=== PATIENT | female | born 1985 | race Caucasian/White ===

== ENCOUNTER 2017-03-29 13:16 | Emergency (ER) | payer BC ==
[~2017-03-29] VITALS: Ht 177.8 cm; Wt 123.2 kg
[2017-03-29 14:08] LABS: HEMATOCRIT 45.1 % (36.0-46.0); MCH 29.3 PG (29.0-34.0); MCHC 35.5 G/DL (30.0-36.0); MCV 82.6 FL (83-99); MEAN PLAT.VOLUME 10.6 uM^3 (9.5-12.4); PLATELET COUNT 357 K/uL (156-360); RBC DIS.WIDTH-CV 12.2 % (11.8-14.6); RBC DIS.WIDTH-SD 36.5 % (39-53); RED BLOOD COUNT 5.46 M/uL (3.80-5.20); WHITE BLOOD COUNT 7.6 K/uL (4.1-10.2)
[2017-03-29 14:18] LABS: CHLORIDE 100 mEq/L (99-109); POTASSIUM 3.4 mEq/L (3.7-5.4); SODIUM 138 mEq/L (136-147)
[2017-03-29 14:20] LABS: GLUCOSE 107 mg/dL (70-99)
[2017-03-29 14:21] LABS: ANION GAP 10 MEQ/L (2-14)
[2017-03-29 14:24] LABS: GFR ESTIMATE (CALCULATED) > 59 mL/min/; UREA NITROGEN (BUN) 7 mg/dL (9-23)
[2017-03-29 15:45] LABS: TOTAL BILIRUBIN 0.7 mg/dL (0.0-1.0)
[2017-03-29 15:46] LABS: ALKALINE PHOSPHATASE 103 IU/L (3-129)
[2017-03-29 15:48] LABS: DIRECT BILIRUBIN 0.3 mg/dL (0.0-0.3)
[2017-03-29 16:28] LABS: ADD MIUA? YES; BILIRUBIN NEGATIVE; BLOOD SMALL; COLOR AMBER ((YELLOW)); GLUCOSE (STRIP) NEGATIVE; KETONES NEGATIVE; LEUKOCYTES LARGE; NITRITE NEGATIVE; PROTEIN (STRIP) 30; SPECIFIC GRAVITY 1.021 (1.000-1.030)
[2017-03-29 16:45] LABS: BACTERIA 2+ /HPF; EPITHELIAL CELLS 1+ /HPF; MUCUS TRACE /LPF; UCUL ADDED? YES; WHITE BLOOD CELLS 20-30 /HPF (0-5)
[2017-03-29] MEDS ORDERED: ZOFRAN4 MG PO (17:09)
[2017-03-29] MEDS ORDERED: CIPRO500 MG PO (17:09)
[2017-03-29 17:20] VITALS: BP 132/91
== END 2017-03-29 17:36 | disposition home or self-care (01) ==
LOC: EME 13:16
DX: N39.0 Urinary tract infection, site not specified (principal); R11.2 Nausea with vomiting, unspecified; K21.9 Gastro-esophageal reflux disease without esophagitis; Z85.828 Personal history of other malignant neoplasm of skin
CPT/HCPCS: 74022; 80048; 80076; 81003; 85027; 87086; 99281; 99285; J7030; Q0169

== ENCOUNTER 2018-02-05 11:01 | Emergency (ER) | payer BC ==
[~2018-02-05] VITALS: Ht 177.8 cm; Wt 128.8 kg
[~2018-02-05 11:01] MED LIST: CIPRO500 MG PO; ZOFRAN4 MG PO
[2018-02-05 11:51] LABS: HEMATOCRIT 46.1 % (36.0-46.0); HEMOGLOBIN 16.5 G/DL (11.9-15.5); MCH 29.9 PG (29.0-34.0); MCHC 35.8 G/DL (30.0-36.0); MCV 83.7 FL (83-99); PLATELET COUNT 341 K/uL (156-360); RBC DIS.WIDTH-CV 12.1 % (11.8-14.6); RBC DIS.WIDTH-SD 36.6 % (39-53); RED BLOOD COUNT 5.51 M/uL (3.80-5.20); WHITE BLOOD COUNT 10.1 K/uL (4.1-10.2)
[2018-02-05 11:52] LABS: APPEARANCE CLEAR ((CLEAR)); BILIRUBIN NEGATIVE; BLOOD SMALL; COLOR AMBER ((YELLOW)); GLUCOSE (STRIP) NEGATIVE; KETONES 20; LEUKOCYTES SMALL; NITRITE NEGATIVE; PROTEIN (STRIP) 30
[2018-02-05 12:05] LABS: BACTERIA RARE /HPF; CALCIUM OXALATE CRYSTALS 1+ /HPF; EPITHELIAL CELLS 1+ /HPF; MUCUS 1+ /LPF; UCUL ADDED? NO; WHITE BLOOD CELLS 0-5 /HPF (0-5)
[2018-02-05 12:32] LABS: ALBUMIN 4.9 G/DL (3.2-4.8); CHLORIDE 98 MEQ/L (99-109); DIRECT BILIRUBIN 0.1 mg/dL (0.0-0.3); POTASSIUM 3.9 MEQ/L (3.7-5.4); SODIUM 138 MEQ/L (136-147)
[2018-02-05 12:38] LABS: ALKALINE PHOSPHATASE 127 IU/L (3-129); ALT (GPT) 29 IU/L (3-49); AST (GOT) 23 IU/L (2-34); CREATININE 0.7 MG/DL (0.6-1.3); GFR ESTIMATE (CALCULATED) > 59 mL/min/; GLUCOSE 94 mg/dL (70-99); TOTAL PROTEIN 8.3 G/DL (6.4-8.3); UREA NITROGEN (BUN) 12 mg/dL (9-23)
[2018-02-05 12:59] LABS: QUANTITATIVE HCG < 4.0 MIU/ML
[2018-02-05] MEDS ORDERED: ZOFRAN ODT4 MG PO (13:42)
[2018-02-05 14:04] VITALS: BP 136/90
== END 2018-02-05 14:02 | disposition home or self-care (01) ==
LOC: EME 11:01
DX: R11.2 Nausea with vomiting, unspecified (principal); Z85.828 Personal history of other malignant neoplasm of skin
CPT/HCPCS: 80048; 80076; 81003; 84702; 85027; 99281; 99285; J2405; J7030